=== PATIENT | female | born 1950 | race Caucasian/White ===

== ENCOUNTER 2019-11-24 12:44 | Emergency (ER) | payer MEDICARE, OTHER ==
--- NOTE | 2019-11-24 13:26 | RAD ---
EXAM: 3 views of the right foot HISTORY: Lateral foot pain after stopping on a insect COMPARISON: None FINDINGS: 3 views of the right foot shows a transverse fracture through the midportion of the fifth m etatarsal. No soft tissue swelling is seen. Extensive hardware is seen surrounding the right ankle with severe degenerative changes in the ankle and hindfoot. IMPRESSION: Fifth metatarsal fracture
== END 2019-11-24 13:55 | disposition home or self-care (01) ==
LOC: MADERS 12:44
DX: S92.351A Displaced fracture of fifth metatarsal bone, right foot, initial encounter for closed fracture (principal); X58.XXXA Exposure to other specified factors, initial encounter

== ENCOUNTER 2024-01-17 12:20 | Outpatient (CLI) | payer MEDICARE | END 2024-01-17 12:21 | disposition home or self-care (01) | LOC: MADRAD 12:20 | PROVIDERS: ATTEND Nurse Practitioner Family | DX: R05.3 Chronic cough (principal) | CPT/HCPCS: 71046 ==